=== PATIENT | male | born 1970 | race Caucasian/White ===

== ENCOUNTER 2019-03-19 23:07 | Emergency (ER) | payer MEDICAID ==
[~2019-03-19] VITALS: Ht 182.9 cm; Wt 129.1 kg
[~2019-03-19 23:07] MED LIST: AZIT250T PO
[2019-03-19 23:11] VITALS: BP 156/90
[2019-03-20] MEDS ORDERED: LORA10TA65 PO (00:02)
--- NOTE | 2019-03-20 00:22 | NUR ---
pt seen and dc'd by provider
== END 2019-03-20 00:17 | disposition home or self-care (01) ==
LOC: ER 23:07
DX: J30.2 Other seasonal allergic rhinitis (principal); F20.9 Schizophrenia, unspecified; F41.0 Panic disorder [episodic paroxysmal anxiety]; I10 Essential (primary) hypertension; F32.9 Major depressive disorder, single episode, unspecified; F15.90 Other stimulant use, unspecified, uncomplicated; Z88.6 Allergy status to analgesic agent; Z88.8 Allergy status to other drugs, medicaments and biological substances; Z79.899 Other long term (current) drug therapy
CPT/HCPCS: 99282

== ENCOUNTER 2019-03-24 08:51 | Emergency (ER) | payer MEDICAID ==
[~2019-03-24] VITALS: Ht 182.9 cm; Wt 125.3 kg
[~2019-03-24 08:51] MED LIST changes: +LORA10TA65 PO
[2019-03-24 08:54] VITALS: BP 124/87
--- NOTE | 2019-03-24 09:03 | NUR ---
PATIENT RECEIVED IN BED 4,AWAITING TO BE SEEN BY MD.
[2019-03-24] MEDS ORDERED: acetaminophen 325mg tablet PO ONE (09:25)
== END 2019-03-24 09:43 | disposition home or self-care (01) ==
LOC: ER 08:52
DX: R51 Headache (principal); I10 Essential (primary) hypertension; F41.9 Anxiety disorder, unspecified; F32.9 Major depressive disorder, single episode, unspecified; F20.9 Schizophrenia, unspecified; F17.200 Nicotine dependence, unspecified, uncomplicated; F15.90 Other stimulant use, unspecified, uncomplicated; Z88.6 Allergy status to analgesic agent; Z88.8 Allergy status to other drugs, medicaments and biological substances; Z79.899 Other long term (current) drug therapy
CPT/HCPCS: 99282

== ENCOUNTER 2019-04-04 12:38 | Emergency (ER) | payer MEDICAID ==
[~2019-04-04] VITALS: Ht 175.3 cm; Wt 125.0 kg
[2019-04-04] MEDS ORDERED: diphenhydrAMINE 25mg capsule PO ONE (13:00)
[2019-04-04] MEDS ORDERED: predniSONE 20 mg tablet PO ONE (13:00)
--- NOTE | 2019-04-04 13:35 | NUR ---
PT RESTING IN BED QUIETLY SAID AM FEELIG LOT BETTER THAN BEFORE.
[2019-04-04 14:20] VITALS: BP 112/82
== END 2019-04-04 14:23 | disposition home or self-care (01) ==
LOC: ER 12:39
DX: T78.40XA Allergy, unspecified, initial encounter (principal); I10 Essential (primary) hypertension; F41.9 Anxiety disorder, unspecified; F32.9 Major depressive disorder, single episode, unspecified; F20.9 Schizophrenia, unspecified; F15.90 Other stimulant use, unspecified, uncomplicated; Z88.6 Allergy status to analgesic agent; Z88.8 Allergy status to other drugs, medicaments and biological substances; Z79.899 Other long term (current) drug therapy; X58.XXXA Exposure to other specified factors, initial encounter; Y93.9 Activity, unspecified; Y92.89 Other specified places as the place of occurrence of the external cause; Y99.8 Other external cause status
CPT/HCPCS: 99283; J7512; Q0163

== ENCOUNTER 2019-04-07 04:01 | Emergency (ER) | payer MEDICAID ==
[~2019-04-07] VITALS: Ht 175.3 cm; Wt 125.0 kg
[2019-04-07] MEDS ORDERED: diphenhydrAMINE 25mg capsule PO ONE (06:55)
[2019-04-07 07:29] VITALS: BP 125/87
== END 2019-04-07 07:38 | disposition home or self-care (01) ==
LOC: ER 04:02
DX: T46.5X5A Adverse effect of other antihypertensive drugs, initial encounter (principal); I10 Essential (primary) hypertension; F41.9 Anxiety disorder, unspecified; F32.9 Major depressive disorder, single episode, unspecified; F20.9 Schizophrenia, unspecified; Z88.6 Allergy status to analgesic agent; Z79.2 Long term (current) use of antibiotics; Z79.899 Other long term (current) drug therapy; Y92.89 Other specified places as the place of occurrence of the external cause
CPT/HCPCS: 99283; Q0163

== ENCOUNTER 2019-04-15 14:27 | Emergency (ER) | payer MEDICAID ==
[~2019-04-15] VITALS: Ht 175.3 cm; Wt 122.7 kg
[2019-04-15 14:28] VITALS: BP 108/73
[2019-04-15] MEDS ORDERED: LORA1TAB PO (14:35)
[2019-04-15] MEDS ORDERED: LORazepam 1 MG tablet PO ONE (14:35)
== END 2019-04-15 14:47 | disposition home or self-care (01) ==
LOC: ER 14:27
DX: F41.9 Anxiety disorder, unspecified (principal); I10 Essential (primary) hypertension; F32.9 Major depressive disorder, single episode, unspecified; F20.9 Schizophrenia, unspecified; Z88.8 Allergy status to other drugs, medicaments and biological substances; Z88.6 Allergy status to analgesic agent; Z79.2 Long term (current) use of antibiotics; Z79.899 Other long term (current) drug therapy
CPT/HCPCS: 99284

== ENCOUNTER 2019-05-12 13:46 | Emergency (ER) | payer MEDICAID ==
[~2019-05-12] VITALS: Ht 175.3 cm; Wt 128.0 kg
[~2019-05-12 13:46] MED LIST changes: +LORA1TAB PO
[2019-05-12 14:19] VITALS: BP 171/106
[2019-05-12] MEDS ORDERED: ACET-2119 PO (15:33)
[2019-05-12] MEDS ORDERED: acetaminophen 325mg tablet PO ONE (15:35)
== END 2019-05-12 15:51 | disposition home or self-care (01) ==
LOC: ER 13:46
DX: K08.89 Other specified disorders of teeth and supporting structures (principal); I10 Essential (primary) hypertension; F41.9 Anxiety disorder, unspecified; F32.9 Major depressive disorder, single episode, unspecified; F20.9 Schizophrenia, unspecified; Z88.6 Allergy status to analgesic agent; Z88.8 Allergy status to other drugs, medicaments and biological substances; Z79.899 Other long term (current) drug therapy
CPT/HCPCS: 99282; 99283

== ENCOUNTER 2019-06-09 12:57 | Emergency (ER) | payer MEDICAID ==
[~2019-06-09] VITALS: Ht 175.3 cm; Wt 128.2 kg
[~2019-06-09 12:57] MED LIST changes: +ACET-2119 PO; -LORA1TAB PO
[2019-06-09 14:55] VITALS: BP 155/103
== END 2019-06-09 15:56 | disposition home or self-care (01) ==
LOC: ER 12:58
DX: F41.9 Anxiety disorder, unspecified (principal); T43.615A Adverse effect of caffeine, initial encounter; I10 Essential (primary) hypertension; F32.9 Major depressive disorder, single episode, unspecified; F20.9 Schizophrenia, unspecified; Z91.09 Other allergy status, other than to drugs and biological substances; Z88.6 Allergy status to analgesic agent; Z88.8 Allergy status to other drugs, medicaments and biological substances; Y92.89 Other specified places as the place of occurrence of the external cause
CPT/HCPCS: 99281; 99283

== ENCOUNTER 2019-07-13 20:20 | Emergency (ER) | payer MEDICAID ==
[~2019-07-13] VITALS: Ht 175.3 cm; Wt 126.8 kg
[~2019-07-13 20:20] MED LIST changes: -ACET-2119 PO
[2019-07-13] MEDS ORDERED: CHLO473M3 PO (22:07)
[2019-07-13 22:37] VITALS: BP 142/77
== END 2019-07-13 22:35 | disposition home or self-care (01) ==
LOC: ER 20:21
DX: K13.29 Other disturbances of oral epithelium, including tongue (principal); I10 Essential (primary) hypertension; F41.9 Anxiety disorder, unspecified; F32.9 Major depressive disorder, single episode, unspecified; F20.9 Schizophrenia, unspecified; Z88.6 Allergy status to analgesic agent; Z88.8 Allergy status to other drugs, medicaments and biological substances; Z79.2 Long term (current) use of antibiotics; Z79.899 Other long term (current) drug therapy
CPT/HCPCS: 99283

== ENCOUNTER 2019-09-02 15:20 | Emergency (ER) | payer MEDICAID ==
[~2019-09-02] VITALS: Ht 177.8 cm; Wt 123.0 kg
[~2019-09-02 15:20] MED LIST changes: +CHLO473M3 PO
[2019-09-02 15:21] VITALS: BP 169/90
[2019-09-02 15:43] LABS: BASOPHILS # (AUTO) 0.1 X10'3 (0-0.2); BASOPHILS % (AUTO) 1.2 % (0-1); EOSINOPHILS # (AUTO) 0.1 X10'3 (0-0.9); HEMATOCRIT 41.4 % (42.0-52.0); HEMOGLOBIN 14.3 g/dl (14.0-17.9); LYMPHOCYTES # (AUTO) 1.4 X10'3 (1.1-4.8); LYMPHOCYTES % (AUTO) 18.3 % (21-51); MEAN CORPUSCULAR HEMOGLOBIN 29.3 PG (27.0-31.0); MEAN CORPUSCULAR HGB CONC 34.5 g/dL (33.0-36.5); MEAN PLATELET VOLUME 9.1 FL (7.4-10.4); MONOCYTES # (AUTO) 0.7 X10'3 (0-0.9); MONOCYTES % (AUTO) 8.7 % (2-12); NEUTROPHILS # (AUTO) 5.6 X10'3 (1.8-7.7); NEUTROPHILS % (AUTO) 70.8 % (42-75); PLATELET COUNT 232 X10'3 (140-440); RED BLOOD COUNT 4.88 X10'6 (4.70-6.10); RED CELL DISTRIBUTION WIDTH 13.1 % (11.5-14.5); WHITE BLOOD COUNT 7.8 X10'3 (4.5-11.0)
[2019-09-02 15:56] LABS: ALANINE AMINOTRANSFERASE 23 U/L (12-78); ALBUMIN 3.9 G/DL (3.4-5.0); ALBUMIN/GLOBULIN RATIO 1.1 (1.1-1.5); ALKALINE PHOSPHATASE 58 IU/L (46-116); ANION GAP 9 (8-16); ASPARTATE AMINO TRANSFERASE 14 U/L (10-37); BILIRUBIN,TOTAL 0.3 MG/DL (0.1-1.0); BLOOD UREA NITROGEN 21 MG/DL (7-18); BUN/CREATININE RATIO 15.7 (5.4-32.0); CALCIUM 8.4 MG/DL (8.5-10.1); CHLORIDE 100 MMOL/L (99-107); CREATININE 1.34 MG/DL (0.60-1.10); GLUCOSE 115 MG/DL (70-104); POTASSIUM 3.6 MMOL/L (3.5-5.1); SODIUM 136 MMOL/L (135-145); TOTAL CARBON DIOXIDE 27.1 MMOL/L (24-32); TOTAL PROTEIN 7.6 G/DL (6.4-8.2); eGFR 57 ML/MIN
== END 2019-09-02 16:17 | disposition home or self-care (01) ==
LOC: ER 15:21
DX: R07.89 Other chest pain (principal); I10 Essential (primary) hypertension; F41.9 Anxiety disorder, unspecified; F32.9 Major depressive disorder, single episode, unspecified; F17.200 Nicotine dependence, unspecified, uncomplicated; Z88.6 Allergy status to analgesic agent; Z88.8 Allergy status to other drugs, medicaments and biological substances; Z79.899 Other long term (current) drug therapy
CPT/HCPCS: 36415; 71045; 80053; 84484; 85025; 93005; 99284

== ENCOUNTER 2019-11-20 17:07 | Emergency (ER) | payer MEDICAID ==
[~2019-11-20] VITALS: Ht 175.3 cm; Wt 120.1 kg
--- NOTE | 2019-11-20 18:17 | NUR ---
right calf circumference: 17.75 left calf circumfedrence: 17:85
[2019-11-20 19:17] VITALS: BP 157/103
[2019-11-20 19:30] LABS: URINE AMPHETAMINE SCREEN NEGATIVE (Neg); URINE BARBITUATE SCREEN NEGATIVE (Neg); URINE BENZODIAZEPINES SCREEN NEGATIVE (Neg); URINE CANNABINOID SCREEN NEGATIVE (Neg); URINE COCAINE SCREEN NEGATIVE (Neg); URINE METHADONE SCREEN NEGATIVE (Neg); URINE OPIATE SCREEN NEGATIVE (Neg); URINE PHENCYCLIDINE SCREEN NEGATIVE (Neg)
== END 2019-11-20 19:19 | disposition home or self-care (01) ==
LOC: ER 17:07
DX: R22.41 Localized swelling, mass and lump, right lower limb (principal); Z00.00 Encounter for general adult medical examination without abnormal findings; I10 Essential (primary) hypertension; F41.9 Anxiety disorder, unspecified; F32.9 Major depressive disorder, single episode, unspecified; F20.9 Schizophrenia, unspecified; Z88.6 Allergy status to analgesic agent; Z88.8 Allergy status to other drugs, medicaments and biological substances; Z79.2 Long term (current) use of antibiotics; Z79.899 Other long term (current) drug therapy
CPT/HCPCS: 80305; 99283

== ENCOUNTER 2019-12-03 15:03 | Emergency (ER) | payer MEDICAID ==
[~2019-12-03] VITALS: Ht 175.3 cm; Wt 122.3 kg
[2019-12-03 15:05] VITALS: BP 139/91
[2019-12-03] MEDS ORDERED: LORazepam 1 MG tablet PO ONE (16:35)
== END 2019-12-03 16:53 | disposition home or self-care (01) ==
LOC: ER 15:04
DX: F41.9 Anxiety disorder, unspecified (principal); I10 Essential (primary) hypertension; F32.9 Major depressive disorder, single episode, unspecified; F20.9 Schizophrenia, unspecified; Z88.8 Allergy status to other drugs, medicaments and biological substances; Z79.2 Long term (current) use of antibiotics; Z79.899 Other long term (current) drug therapy
CPT/HCPCS: 99282; 99283

== ENCOUNTER 2019-12-24 16:14 | Emergency (ER) | payer MEDICAID ==
[~2019-12-24] VITALS: Ht 175.3 cm; Wt 122.0 kg
[2019-12-24 16:37] VITALS: BP 129/96
[2019-12-24] MEDS ORDERED: LORazepam 1 MG tablet PO ONE (17:30)
== END 2019-12-24 18:02 | disposition home or self-care (01) ==
LOC: ER 16:15
DX: F41.0 Panic disorder [episodic paroxysmal anxiety] (principal); I10 Essential (primary) hypertension; F32.9 Major depressive disorder, single episode, unspecified; F20.9 Schizophrenia, unspecified; Z88.6 Allergy status to analgesic agent; Z88.8 Allergy status to other drugs, medicaments and biological substances; Z79.2 Long term (current) use of antibiotics; Z79.899 Other long term (current) drug therapy
CPT/HCPCS: 99283

== ENCOUNTER 2020-02-22 22:51 | Emergency (ER) | payer MEDICAID ==
[~2020-02-22] VITALS: Ht 175.3 cm; Wt 129.0 kg
[2020-02-22 23:50] VITALS: BP 132/70
== END 2020-02-22 23:51 | disposition home or self-care (01) ==
LOC: ER 22:51
DX: R06.89 Other abnormalities of breathing (principal); R42 Dizziness and giddiness; I10 Essential (primary) hypertension; F41.9 Anxiety disorder, unspecified; F32.9 Major depressive disorder, single episode, unspecified; F20.9 Schizophrenia, unspecified; Z88.6 Allergy status to analgesic agent; Z88.8 Allergy status to other drugs, medicaments and biological substances; Z79.2 Long term (current) use of antibiotics; Z79.899 Other long term (current) drug therapy
CPT/HCPCS: 99283

== ENCOUNTER 2024-01-27 14:53 | Emergency (ER) | payer MEDICAID ==
[~2024-01-27] VITALS: Ht 401.3 cm; Wt 138.8 kg
[2024-01-27 15:01] VITALS: BP 190/98; PULSE 103; RESP 16; TEMP 98; O2SAT 96
[2024-01-27] MEDS ORDERED: LUMA42CA PO (16:37)
[2024-01-27] MEDS ORDERED: PERP8TAB6 PO (16:37)
== END 2024-01-27 17:20 | disposition home or self-care (01) ==
LOC: ER 14:55
DX: F31.9 Bipolar disorder, unspecified (principal); Z76.0 Encounter for issue of repeat prescription
CPT/HCPCS: 99281

== ENCOUNTER 2024-03-11 01:27 | Emergency (ER) | payer MEDICAID ==
[~2024-03-11] VITALS: Ht 175.3 cm; Wt 144.1 kg
[~2024-03-11 01:27] MED LIST changes: +CHLO473M13 PO; -CHLO473M3 PO; +LUMA42CA PO; +PERP8TAB6 PO
[2024-03-11] MEDS ORDERED: PERP8TAB6 PO (01:49)
[2024-03-11 02:31] VITALS: BP 150/80; PULSE 88; RESP 16; TEMP 98; O2SAT 97
== END 2024-03-11 02:34 | disposition home or self-care (01) ==
LOC: ER 01:28
DX: Z76.0 Encounter for issue of repeat prescription (principal); F31.9 Bipolar disorder, unspecified; F41.9 Anxiety disorder, unspecified; I10 Essential (primary) hypertension; Z88.6 Allergy status to analgesic agent; Z79.2 Long term (current) use of antibiotics; Z79.899 Other long term (current) drug therapy
CPT/HCPCS: 99281